=== PATIENT | male | born 2000 | race Hispanic/Latino ===

== ENCOUNTER 2023-08-17 16:09 | Emergency (ER) | payer OTHER, SELFPAY ==
[2023-08-17 16:10] VITALS: BP 148/81; PULSE 78; RESP 18; TEMP 36.6; O2SAT 99; BMI 31.6
--- NOTE | 2023-08-17 17:05 | RAD_ITS ---
INDICATION: INJURY EXAMINATION/TECHNIQUE: X-RAY - LEFT XR Hand 3 VIEWS COMPARISON: FINDINGS: SOFT TISSUES: No soft tissue swelling or gas. No radiopaque foreign body. BONES/JOINTS: No acute fracture or subluxation.. Normal alignment. Preservation of the joint space.. No sclerotic or destructive changes observed. RAD/Hand Min 3 Views IMPRESSION: No acute bony injury. Electronically Signed: Ritchie Dior DO at 17:18 EST ,
--- NOTE | 2023-08-17 17:58 | EX.ED.UPPERE ---
HPI History of Present Illness Chief Complaint: Upper Extremity Injury Detail of Chief Complaint: Injury to left hand Informant: friend Narrative Narrative: Patient presents to the emergency department after sustaining an injury to his left hand. Patient was at work using a drill when he accidentally screwed a screw into his left hand. Patient is right-hand dominant. Patient's last tetanus shot was about 2 years ago from what he tells me. 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 Adjunct Phlebotomy Instructor was able to remove the screw by backing the drill and reverse. Patient denies any loss of function or sensation. PFSH PFSH Home Medications cephalexin 500 mg capsule 500 mg PO Q6 #40 CAPSULES 08/17/23 [Rx Last Taken Unknown] Allergy/AdvReac Type Severity Reaction Status Date / Time No Known Allergies Allergy Verified 08/17/23 16:10 ROS ROS ED Review of Systems ROS Unobtainable: other Constitutional Constitutional ED: Reports lethargy; Denies chills, fever(s), sweats or weight loss Eyes Eyes: Denies blurry vision, change in vision or diplopia ENT ENT ED: Denies rhinorrhea or sore throat Cardiovascular Cardiovascular: Denies chest pain, orthopnea or racing heartbeat Respiratory/Chest Respiratory/Chest: Denies cough, dyspnea, dyspnea on exertion, orthopnea or sputum Gastrointestinal Gastrointestinal: Denies abdominal pain, diarrhea, nausea or vomiting Genitourinary Genitourinary ED: Denies dysuria, hematuria or urinary frequency Musculoskeletal Musculoskeletal: Reports other Details: Left hand injury/laceration ; Denies arthralgias, back pain, myalgias or neck pain Integumentary Denies abscess, Abrasions or rash Neurologic Neurologic: Denies headache(s) or weakness Psychiatric Psychiatric: Denies anxiety, depression or suicidal thoughts Endocrine Endocrinology: Denies polydipsia, polyphagia or polyuria Hematologic/Lymphatic Hematologic/Lymphatic: Denies easy bleeding, easy bruising or lymphadenopathy Allergic/Immunologic Allergic/Immunologic ED: Denies mouth swelling, tongue swelling or urticaria EXAM Physical Exam Const Vital Signs: 08/17/23 16:10 Temperature 97.8 F Temperature Source Temporal Pulse Rate 78 Respiratory Rate 18 Blood Pressure 148/81 H Blood Pressure Mean 103 Pulse Ox 99 Oxygen Delivery Method Room Air Positive well nourished and well developed General Appearance ED: well developed and NAD HEENT Reports TM's clear and moist mucous membranes normocephalic and atraumatic; Negative for trauma or tenderness Tympanic Membrane ED: Yes TM's clear Eyes PERRL and EOMs intact bilaterally General Eye ED: Negative for pale conjunctiva or scleral icterus Neck no lymphadenopathy, supple and no JVD General: Negative for tenderness Chest Wall inspection of chest normal and palpation of chest normal Chest: Negative for tenderness Resp normal respiratory effort and clear to auscultation bilaterally Effort and Inspection: Negative for respiratory distress or pain with movement Auscultation: Negative for rhonchi, wheezes or diminished lung sounds Cardio regular rate, regular rhythm, S1 normal heart sound, S2 normal heart sound and no murmurs Peripheral Pulses: pulses 2+ throughout GI normal to inspection, nondistended, normoactive bowel sounds, soft to palpation, non-tender, non-distended and no masses Back/Spine no CVA tenderness and no thoracic nor lumbar tenderness Extremity Extremity Narrative: Left hand-patient has a small puncture wound noted to the webspace extending into the thenar eminence between the thumb and index finger. Patient has normal range of motion flexion extension of all digits. Normal strength. No active bleeding. Neurovascularly intact. General Extremety ED: Negative for edema General Extremity: Negative for edema Neuro oriented x3, CN's II-XII intact bilaterally, no sensory deficits noted and gait normal Sensorium / Orientation: awake, alert, oriented to person, oriented to place and oriented to time Motor Exam: strength 5/5 throughout and strength abnormal Psych mental status grossly normal Skin no rashes or lesions noted and no wounds MDM MDM MDM Narrative Medical decision making narrative: Patient presents with a puncture wound to the left hand in the first webspace extending into the thenar eminence. He is neurovascular intact. X-rays of the hand obtained showed no evidence of foreign body or bony injury. Wound was irrigated with saline and clean dressing was applied. The wound is not amenable to any type of suture repair and was left open. I am told that the screw was new and had not been used prior to the injury. Patient will be started on Keflex empirically. Will be referred to Ortho for follow-up. Advised to return if increasing pain, redness, swelling, or condition should worsen anyway. Radiography Diagnostic Testing: Clinical Impression(s) from Imaging Studies Hand X-Ray 08/17/23 17:05 IMPRESSION: No acute bony injury. Electronically Signed: Ritchie Dior DO at 17:18 EST Reading Location ID and State: [facility] / [place] Tel [phone], Service support , Three-view x-rays of the left hand obtained interpreted by myself as no evidence of fracture or foreign body. Radiology in agreement. Discharge Plan Triage Chief Complaint: Upper Extremity Injury ED Provider: Nael Paul Dx/Rx/DC Orders Clinical Impression: Puncture wound of hand, left Instructions: ED Puncture Wound (General) Prescriptions: New cephalexin [cephalexin] 500 mg capsule 500 mg PO Q6 Qty: 40 0RF Referrals: Helio Hsu MD [Med Staff - Active Staff] - 3-5 Days Disposition Disposition: Home, Self Care
[2023-08-17] MEDS: Cephalexin 250 MG Capsule 500 MG PO (18:14)
== END 2023-08-17 18:26 | disposition home or self-care (01) ==
LOC: ED 18:21
PROVIDERS: Emergency Provider Emergency Medicine; Visit Provider Emergency Medicine
DX: S61.432A Puncture wound without foreign body of left hand, initial encounter (principal); Y99.0 Civilian activity done for income or pay; W29.8XXA Contact with other powered hand tools and household machinery, initial encounter; Y93.89 Activity, other specified; Y92.69 Other specified industrial and construction area as the place of occurrence of the external cause
CPT/HCPCS: 73130; 99283